=== PATIENT | male | born 1985 | race Caucasian/White ===

== ENCOUNTER 2017-06-21 05:36 | Emergency (ER) | payer SELFPAY ==
[2017-06-21] MEDS ORDERED: Ketorolac 60 MG/2 ML SDV IM ONE (06:38)
[2017-06-21] MEDS ORDERED: Acetaminophen/HYDROcodone 325-10 MG Tab PO ONE (06:39)
--- NOTE | 2017-06-21 06:40 | EDM.PDOC ---
ED HPI GENERAL MEDICAL PROBLEM - General Chief Complaint: Lower Extremity Injury/Pain Stated Complaint: LEFT FOOT PAIN Time Seen by Provider: 06/21/17 06:35 - History of Present Illness INITIAL COMMENTS - FREE TEXT/NARRATIVE: HISTORY AND PHYSICAL: History of present illness: Patient 32-year-old white male presents with concern of pain and swelling to his left foot he's had no trauma denies history of gout is been no fever chills nausea vomiting or other complaints states is quite sensitive Review of systems: As per history of present illness and below otherwise all systems reviewed and negative. Past medical history: As per history of present illness and as reviewed below otherwise noncontributory. Surgical history: As per history of present illness and as reviewed below otherwise noncontributory. Social history: No reported history of drug or alcohol abuse. Family history: As per history of present illness and as reviewed below otherwise noncontributory. Physical exam: HEENT: Atraumatic, normocephalic, pupils reactive, negative for conjunctival pallor or scleral icterus, mucous membranes moist, throat clear, neck supple, nontender, trachea midline. Lungs: Clear to auscultation, breath sounds equal bilaterally, chest nontender. Heart: S1S2, regular, negative for clicks, rubs, or JVD. Abdomen: Soft, nondistended, nontender. Negative for masses or hepatosplenomegaly. Negative for costovertebral tenderness. Pelvis: Stable nontender. Genitourinary: Deferred. Rectal: Deferred. Extremities: Left foot has some swelling noted with somewhat diffuse tenderness quite sensitive to palpation CMS neurovascular exam is unremarkable no crepitation or erythema Neuro: Awake, alert, oriented. Cranial nerves II through XII unremarkable. Cerebellum unremarkable. Motor and sensory unremarkable throughout. Exam nonfocal. Diagnostics: X-ray left foot/ankle CBC CMP and uric acid Therapeutics: Toradol 60 mg IM hydrocodone 10 mg by mouth Impression: #1 left foot/ankle pain probable gouty arthritis Definitive disposition and diagnosis as appropriate pending reevaluation and review of above. Left Ankle Pain Score (Numeric/FACES): 10 - Related Data Allergies Allergy/AdvReac Type Severity Reaction Status Date / Time No Known Allergies Allergy Verified 06/21/17 05:46 Home Meds: Home Meds . [No Known Home Meds] 06/21/17 [History] Past Medical History HEENT History: Reports: None Cardiovascular History: Reports: None Respiratory History: Reports: None Gastrointestinal History: Reports: None Genitourinary History: Reports: None Musculoskeletal History: Reports: None Neurological History: Reports: None Psychiatric History: Reports: None Endocrine/Metabolic History: Reports: None Dermatologic History: Reports: None - Infectious Disease History Infectious Disease History: Reports: None - Past Surgical History HEENT Surgical History: Reports: None Cardiovascular Surgical History: Reports: None Respiratory Surgical History: Reports: None GI Surgical History: Reports: None Musculoskeletal Surgical History: Reports: None Social & Family History - Tobacco Use Smoking Status *Q: Current Every Day Smoker Years of Tobacco use: 10 Packs/Tins Daily: 0.4 Review of Systems - Review of Systems Review Of Systems: ROS reveals no pertinent complaints other than HPI. ED EXAM, GENERAL - Physical Exam Exam: See Below (See dictation) Course - Vital Signs Last Recorded V/S: Last Vital Signs Temp 36.6 C 06/21/17 05:46 Pulse 100 06/21/17 05:46 Resp 20 06/21/17 05:46 BP 141/85 H 06/21/17 05:46 Pulse Ox 98 06/21/17 05:46 - Orders/Labs/Meds Orders: Active Orders 24 hr Category Date Time Status Ankle 2V Lt [CR] Stat Exams 06/21/17 05:53 Taken Foot Comp Min 3V Lt [CR] Stat Exams 06/21/17 05:54 Taken CMP [COMPREHENSIVE METABOLIC PN,CMP] [CHEM] Stat Lab 06/21/17 06:24 Received URIC ACID [CHEM] Stat Lab 06/21/17 06:24 Received Labs: Laboratory Tests 06/21/17 Range/Units 06:24 WBC 11.16 H (4.0-11.0) K/uL RBC 4.52 (4.50-5.90) M/uL Hgb 14.2 (13.0-17.0) g/dL Hct 41.8 (38.0-50.0) % MCV 92.5 (80.0-98.0) fL MCH 31.4 (27.0-32.0) pg MCHC 34.0 (31.0-37.0) g/dL RDW Std Deviation 41.1 (28.0-62.0) fl RDW Coeff of Brittanie 12 (11.0-15.0) % Plt Count 280 (150-400) K/uL MPV 9.60 (7.40-12.00) fL Neut % (Auto) 76.0 (48.0-80.0) % Lymph % (Auto) 16.8 (16.0-40.0) % [place] % (Auto) 5.6 (0.0-15.0) % Eos % (Auto) 1.3 (0.0-7.0) % Baso % (Auto) 0.3 (0.0-1.5) % Neut # (Auto) 8.5 H (1.4-5.7) K/uL Lymph # (Auto) 1.9 (0.6-2.4) K/uL [place] # (Auto) 0.6 (0.0-0.8) K/uL Eos # (Auto) 0.1 (0.0-0.7) K/uL Baso # (Auto) 0.0 (0.0-0.1) K/uL Nucleated RBC % 0.0 /100WBC Nucleated RBCs # 0 K/uL Departure - Departure Time of Disposition: 06:39 Disposition: Home, Self-Care 01 Condition: Good Clinical Impression: Foot pain, left, Ankle pain, Gout - Discharge Information Referrals: PCP,None [Primary Care Provider] - Additional Instructions: The following information is given to patients seen in the emergency department who are being discharged to home. This information is to outline your options for follow-up care. We provide all patients seen in our emergency department with a follow-up referral. The need for follow-up, as well as the timing and circumstances, are variable depending upon the specifics of your emergency department visit. If you don't have a primary care physician on staff, we will provide you with a referral. We always advise you to contact your personal physician following an emergency department visit to inform them of the circumstance of the visit and for follow-up with them and/or the need for any referrals to a consulting specialist. The emergency department will also refer you to a specialist when appropriate. This referral assures that you have the opportunity for followup care with a specialist. All of these measure are taken in an effort to provide you with optimal care, which includes your followup. Under all circumstances we always encourage you to contact your private physician who remains a resource for coordinating your care. When calling for followup care, please make the office aware that this follow-up is from your recent emergency room visit. If for any reason you are refused follow-up, please contact the [facility] emergency department at and asked to speak to the emergency department charge nurse. [facility] [address], [address] [place] [address] Indomethacin as prescribed follow-up orthopedic clinic called schedule routine appointment return as needed as discussed - My Orders Last 24 Hours: My Active Orders 06/21/17 05:53 Ankle 2V Lt [CR] Stat 06/21/17 05:54 Foot Comp Min 3V Lt [CR] Stat 06/21/17 06:24 CMP [COMPREHENSIVE METABOLIC PN,CMP] [CHEM] Stat URIC ACID [CHEM] Stat - Assessment/Plan Last 24 Hours: My Active Orders 06/21/17 05:53 Ankle 2V Lt [CR] Stat 06/21/17 05:54 Foot Comp Min 3V Lt [CR] Stat 06/21/17 06:24 CMP [COMPREHENSIVE METABOLIC PN,CMP] [CHEM] Stat URIC ACID [CHEM] Stat
[2017-06-21 06:58] LABS: CHLORIDE,CL 109 mmol/L (98-110); SODIUM,NA 141 mmol/L (136-146)
--- NOTE | 2017-06-21 10:52 | CR ---
EXAM DATE: 06/21/17 PATIENT'S AGE: 32 Patient: FREDY JOSHI Facility: [place], [place] Site . Site : 1985 Study: XRay Extremity Foot [id number]/20/2017 6:28:07 AM Ordering Physician: Doctor Johnston Final Report: INDICATION: Pain and swelling. No known injury. TECHNIQUE: Three views of the left foot. FINDINGS: No fracture, dislocation, erosion, or intrinsic skeletal lesion. IMPRESSION: Negative left foot. Dictated by Shahriar Ma MD @ 06/21/2017 6:41:17 AM Dictated by: Shahriar Ma MD @ 06/21/2017 06:41:23 (Electronic Signature) Report Signed by Proxy. DANISHA
--- NOTE | 2017-06-21 10:52 | CR ---
EXAM DATE: 06/21/17 PATIENT'S AGE: 32 Patient: FREDY JOSHI Facility: [place], [place] Site . Site : 1985 Study: XRay Extremity Ankle [id number]/20/2017 6:27:38 AM Ordering Physician: Doctor Johnston Final Report: INDICATION: Pain and swelling. No known injury. TECHNIQUE: Two views of the left ankle. FINDINGS: Mild soft tissue swelling about the ankle. No fracture, dislocation, erosion, or intrinsic skeletal lesion. IMPRESSION: Minor soft tissue swelling. Left ankle is otherwise negative. Dictated by Shahriar Ma MD @ 06/21/2017 6:40:18 AM Dictated by: Shahriar Ma MD @ 06/21/2017 06:40:24 (Electronic Signature) Report Signed by Proxy. DANISHA
== END 2017-06-21 07:55 | disposition home or self-care (01) ==
LOC: MW.ED 05:36
DX: M10.9 Gout, unspecified (principal); M25.572 Pain in left ankle and joints of left foot; F17.210 Nicotine dependence, cigarettes, uncomplicated
CPT/HCPCS: 36415; 73600; 73630; 80053; 84550; 85025; 96372; 99283; J1885

== ENCOUNTER 2020-07-21 09:14 | Emergency (ER) | payer SELFPAY ==
[2020-07-21] MEDS ORDERED: Alum Hydrox/Mag Hydrox/Simeth 15 ML, Lidocaine 2% 5 ML PO ONE ×2 (09:45)
[2020-07-21] MEDS ORDERED: Famotidine 20 MG/2 ML SDV IVPUSH ONE (09:45)
[2020-07-21] MEDS ORDERED: Sodium Chloride 0.9% 1,000 ML IV ONE (09:45)
[2020-07-21] MEDS ORDERED: Ondansetron 4 MG/2 ML SDV IVPUSH ONE (09:45)
--- NOTE | 2020-07-21 09:45 | EDM.PDOC ---
ED HPI GENERAL MEDICAL PROBLEM - General Chief Complaint: Abdominal Pain Stated Complaint: STOMACH PAIN BURNING FEELING Time Seen by Provider: 07/21/20 09:42 Source of Information: Reports: Patient History Limitations: Reports: No Limitations - History of Present Illness INITIAL COMMENTS - FREE TEXT/NARRATIVE: Patient is a 35-year-old male presents today for abdominal pain. Patient states since last week he has been having burning sensation in his abdomen with nausea vomiting. Patient states that is irritated more when he eats or drinks anything cold. Patient able to tolerate some water. Patient denies any diarrhea or recent travels antibiotic use. Patient denies any fever chills or urinary complaints. abd Pain Score (Numeric/FACES): 7 - Related Data Allergies Allergy/AdvReac Type Severity Reaction Status Date / Time No Known Allergies Allergy Verified 07/21/20 09:26 Home Meds: Home Meds Famotidine [Pepcid] 40 mg PO BID 30 Days #60 tablet 07/21/20 [Rx] Ondansetron [Zofran ODT] 4 mg PO Q6H PRN 7 Days #28 tab.dis 07/21/20 [Rx] Past Medical History HEENT History: Reports: None Cardiovascular History: Reports: None Respiratory History: Reports: None Gastrointestinal History: Reports: None Genitourinary History: Reports: None Musculoskeletal History: Reports: None Neurological History: Reports: None Psychiatric History: Reports: None Endocrine/Metabolic History: Reports: None Dermatologic History: Reports: None - Infectious Disease History Infectious Disease History: Reports: None - Past Surgical History HEENT Surgical History: Reports: None Cardiovascular Surgical History: Reports: None Respiratory Surgical History: Reports: None GI Surgical History: Reports: None Musculoskeletal Surgical History: Reports: None ED ROS GENERAL - Review of Systems Review Of Systems: Comprehensive ROS is negative, except as noted in HPI. ED EXAM, GENERAL - Physical Exam Exam: See Below Exam Limited By: No Limitations General Appearance: Alert, No Apparent Distress Eye Exam: Bilateral Eye: EOMI, PERRL Respiratory/Chest: No Respiratory Distress, Lungs Clear Cardiovascular: Regular Rate, Rhythm GI/Abdominal: Normal Bowel Sounds, Soft, Non-Tender Extremities: Normal Range of Motion Neurological: Alert, Oriented, CN II-XII Intact, Normal Cognition, Normal Gait Skin Exam: Warm Course - Vital Signs Last Recorded V/S: Last Vital Signs Temp 96.6 F L 07/21/20 09:24 Pulse 51 L 07/21/20 12:00 Resp 16 07/21/20 12:00 BP 119/60 07/21/20 12:00 Pulse Ox 96 07/21/20 12:00 - Orders/Labs/Meds Labs: Laboratory Tests 07/21/20 07/21/20 Range/Units 09:29 09:29 WBC 10.72 (4.0-11.0) K/uL RBC 4.96 (4.50-5.90) M/uL Hgb 15.2 (13.0-17.0) g/dL Hct 45.7 (38.0-50.0) % MCV 92.1 (80.0-98.0) fL MCH 30.6 (27.0-32.0) pg MCHC 33.3 (31.0-37.0) g/dL RDW Std Deviation 41.1 (28.0-62.0) fl RDW Coeff of Brittanie 12 (11.0-15.0) % Plt Count 372 (150-400) K/uL MPV 9.90 (7.40-12.00) fL Neut % (Auto) 82.9 H (48.0-80.0) % Lymph % (Auto) 13.8 L (16.0-40.0) % [place] % (Auto) 3.2 (0.0-15.0) % Eos % (Auto) 0.0 (0.0-7.0) % Baso % (Auto) 0.1 (0.0-1.5) % Neut # (Auto) 8.9 H (1.4-5.7) K/uL Lymph # (Auto) 1.5 (0.6-2.4) K/uL [place] # (Auto) 0.3 (0.0-0.8) K/uL Eos # (Auto) 0.0 (0.0-0.7) K/uL Baso # (Auto) 0.0 (0.0-0.1) K/uL Nucleated RBC % 0.0 /100WBC Nucleated RBCs # 0 K/uL Sodium 141 (136-148) mmol/L Potassium 3.4 L (3.5-5.1) mmol/L Chloride 98 (98-107) mmol/L Carbon Dioxide 31.6 (21.0-32.0) mmol/L BUN 14 (7.0-18.0) mg/dL Creatinine 0.9 (0.8-1.3) mg/dL Est Cr Clr Drug Dosing 119.41 mL/min Estimated GFR (MDRD) > 60.0 ml/min Glucose 135 H (74-106) mg/dL Calcium 9.8 (8.5-10.1) mg/dL Phosphorus 3.7 (2.6-4.7) mg/dL Magnesium 2.5 H (1.8-2.4) mg/dL Total Bilirubin 0.6 (0.2-1.0) mg/dL AST 17 (15-37) IU/L ALT 37 (14-63) IU/L Alkaline Phosphatase 52 (46-116) U/L Total Protein 7.9 (6.4-8.2) g/dL Albumin 4.6 (3.4-5.0) g/dL Globulin 3.3 (2.6-4.0) g/dL Albumin/Globulin Ratio 1.4 (0.9-1.6) Lipase 56 L (73-393) U/L Meds: Medications Discontinued Medications Generic Name Dose Route Start Last Admin Trade Name Freq PRN Reason Stop Dose Admin Al Hydroxide/Mg Hydroxide 15 0 ml 07/21/20 09:45 07/21/20 10:19 ml/ Lidocaine HCl 5 ml PO 07/21/20 09:46 20 each ONETIME ONE Administration Famotidine 20 mg 07/21/20 09:45 07/21/20 10:19 Pepcid IVPUSH 07/21/20 09:46 20 mg ONETIME ONE Administration Sodium Chloride 1,000 mls @ 999 mls/hr 07/21/20 09:45 07/21/20 10:17 Normal Saline IV 07/21/20 10:45 999 mls/hr .BOLUS ONE Administration Iopamidol 100 ml 07/21/20 11:17 07/21/20 11:18 Isovue Multipack-370 (76%) IVPUSH 07/21/20 11:18 100 ml ONETIME STA Administration Ondansetron HCl 4 mg 07/21/20 09:45 07/21/20 10:19 Zofran IVPUSH 07/21/20 09:46 4 mg ONETIME ONE Administration - Re-Assessments/Exams Free Text/Narrative Re-Assessment/Exam: 07/21/20 12:[address] scan reviewed. Patient nausea and pain is improved. Patient will be discharged home with Pepcid and Maalox and will follow up with his primary care physician. Departure - Departure Time of Disposition: 12:47 Disposition: Home, Self-Care 01 Condition: Good Clinical Impression: GERD (gastroesophageal reflux disease) - Discharge Information *PRESCRIPTION DRUG MONITORING PROGRAM REVIEWED*: No *COPY OF PRESCRIPTION DRUG MONITORING REPORT IN PATIENT ANTOINE: No Prescriptions: Famotidine [Pepcid] 40 mg PO BID 30 Days #60 tablet Ondansetron [Zofran ODT] 4 mg PO Q6H PRN 7 Days #28 tab.dis PRN Reason: Nausea Instructions: Gastroesophageal Reflux Disease, Adult, [id number] Referrals: PCP,None [Primary Care Provider] - Forms: ED Department Discharge Additional Instructions: The following information is given to patients seen in the emergency department who are being discharged to home. This information is to outline your options for follow-up care. We provide all patients seen in our emergency department with a follow-up referral. The need for follow-up, as well as the timing and circumstances, are variable depending upon the specifics of your emergency department visit. If you don't have a primary care physician on staff, we will provide you with a referral. We always advise you to contact your personal physician following an emergency department visit to inform them of the circumstance of the visit and for follow-up with them and/or the need for any referrals to a consulting specialist. The emergency department will also refer you to a specialist when appropriate. This referral assures that you have the opportunity for follow-up care with a specialist. All of these measure are taken in an effort to provide you with optimal care, which includes your follow-up. Under all circumstances we always encourage you to contact your private physician who remains a resource for coordinating your care. When calling for follow-up care, please make the office aware that this follow-up is from your recent emergency room visit. If for any reason you are refused follow-up, please contact the [facility] Emergency Department at and asked to speak to the emergency department charge nurse. Please follow up with your primary care physician. If you do not have a primary care physician, see below: [facility] [address] [place] [address] My [facility] [address] [place] [address] Please follow-up with your primary care physician. Having difficulties tolerat ing full water increase nausea vomiting please return to the ED. Sepsis Event Note (ED) - Evaluation Sepsis Screening Result: No Definite Risk - Focused Exam Vital Signs: Vital Signs Temp Pulse Resp BP Pulse Ox 07/21/20 12:00 51 L 16 119/60 96 07/21/20 10:22 66 16 150/83 H 99 07/21/20 09:24 96.6 F L 77 16 130/82 97 - Assessment/Plan Plan: Patient is a 35-year-old male who presents today for cessation his abdomen. Patient is no abdominal tenderness on examination. We will give Pepcid and Zofran and send labs and reassess.
[2020-07-21 10:06] LABS: BLOOD UREA NITROGEN,BUN 14 mg/dL (7.0-18.0); CARBON DIOXIDE,CO2 31.6 mmol/L (21.0-32.0); CHLORIDE,CL 98 mmol/L (98-107); GLUCOSE RANDOM 135 mg/dL (74-106); LIPASE 56 U/L (73-393); POTASSIUM,K 3.4 mmol/L (3.5-5.1); SODIUM,NA 141 mmol/L (136-148)
[2020-07-21] MEDS ORDERED: Iopamidol 755 MG/ML 500 ML Multipack Bottle IVPUSH STA (11:17)
--- NOTE | 2020-07-21 12:39 | CT ---
INDICATION: Diffuse abdominal pain with nausea and vomiting. TECHNIQUE: CT abdomen and pelvis acquired with 100 cc Isovue 370 IV contrast. COMPARISON: None. FINDINGS: Lower chest: Unremarkable. Liver: Unremarkable. Normal in size and attenuation. No masses. Gallbladder and bile ducts: Unremarkable. No stones or inflammation. No biliary dilatation. Pancreas: Unremarkable. No mass or inflammation. Spleen: Unremarkable. Normal in size. No masses. Adrenal glands: Unremarkable. No nodules. Kidneys: Unremarkable. No masses, stones, or hydronephrosis. GI tract: Unremarkable. Normal in caliber. No sign of mass or inflammation. Normal appendix. Vasculature: Unremarkable. Mesenteric arteries are patent. Lymph nodes: No lymphadenopathy. Omentum/Peritoneum/Abdominal Wall: Unremarkable. No sign of mass or infiltration. No free air or significant free fluid. Pelvis: Unremarkable. Bones: Unremarkable for age. IMPRESSION: Unremarkable CT of the abdomen and pelvis. No findings to explain abdominal pain. Dictated by Sumanth Winters MD @ 07/21/2020 12:38:09 PM Please note that all CT scans at this facility use dose modulation, iterative reconstruction, and/or weight-based dosing when appropriate to reduce radiation dose to as low as reasonably achievable. Dictated by: Sumanth Winters MD @ 07/21/2020 12:38:14 (Electronically Signed)
== END 2020-07-21 12:56 | disposition home or self-care (01) ==
LOC: MW.ED 09:14
DX: K21.9 Gastro-esophageal reflux disease without esophagitis (principal); Z79.899 Other long term (current) drug therapy
CPT/HCPCS: 74177; 80053; 83690; 83735; 84100; 85025; 96374; 96375; 99284; A9270; J2405; J3490; J7030; Q9967; 99283